=== PATIENT | male | born 1990 | race Caucasian/White ===

== ENCOUNTER → 2019-11-21 09:54 | Outpatient (BNVA) | payer SELFPAY | PROVIDERS: PCP Family Medicine; Visit Provider Family Medicine | DX: F41.9 Anxiety disorder, unspecified (principal); R03.0 Elevated blood-pressure reading, without diagnosis of hypertension; F20.3 Undifferentiated schizophrenia | CPT/HCPCS: 36415; 80053; 80061; 85007; 85027 ==